=== PATIENT | female | born 1990 | race Asian ===

== ENCOUNTER 2022-05-29 11:19 | Emergency (ER) | payer OTHER ==
[~2022-05-29] VITALS: Ht 165.1 cm; Wt 64.0 kg
[2022-05-29 12:38] LABS: Urine Bacteria FEW /hpf (None Seen); Urine Blood Negative /uL (Negative); Urine Specific Gravity 1.007 (1.001-1.035); Urine WBC 1 /hpf (0 - 5)
[2022-05-29 13:38] LABS: Basophils # (auto) 0 10 ^3/uL (0-0.2); Basophils % (auto) 0.7 % (0.0-2.0); Eosinophils # (auto) 0.1 10 ^3/uL (0-0.8); Eosinophils % (auto) 1.5 % (0.0-7.0); Hematocrit 41.3 % (36.0-46.0); Hemoglobin 13.4 g/dL (12.2-16.2); Lymphocytes # (auto) 2.3 10 ^3/uL (0.4-5.4); Mean Corpuscular Hemoglobin 28.8 pg (28.0-32.0); Mean Corpuscular Hgb Conc. 32.3 g/dL (32.0-36.0); Mean Corpuscular Volume 89.2 fL (80.0-100.0); Monocytes # (auto) 0.3 10 ^3/uL (0-1.3); Monocytes % (auto) 4.1 % (0.0-12.0); Neutrophils # (auto) 4.1 10 ^3/uL (1.6-8.6); Neutrophils % (auto) 59.7 % (37.0-80.0); Red Blood Cells 4.63 10^6/uL (4.0-5.20); Red Cell Distribution Width 13.1 % (11.8-14.3); White Blood Cell 6.9 10^3/uL (4.4-10.8)
[2022-05-29 14:10] LABS: INR 1.02 (0.9-1.15); Partial Thromboplastin Time 28.6 sec (24.6-33.4)
[2022-05-29 14:11] VITALS: BP 98/67
== END 2022-05-29 15:35 | disposition home or self-care (01) ==
LOC: ER 11:19
DX: R23.3 Spontaneous ecchymoses (principal); R07.89 Other chest pain
CPT/HCPCS: 36415; 81001; 85025; 85610; 85730; 93005; 93971